=== PATIENT | female | born 1995 | race Caucasian/White ===

== ENCOUNTER 2020-05-12 15:34 | Emergency (ER) | payer OTHER ==
[~2020-05-12 15:34] MED LIST: ZOFRAN4 MG PO
[2020-05-12] MEDS ORDERED: IBUPROFEN600 MG PO (16:38)
== END 2020-05-12 17:00 | disposition home or self-care (01) ==
LOC: ER1 15:34
DX: S20.212A Contusion of left front wall of thorax, initial encounter (principal); S40.012A Contusion of left shoulder, initial encounter; I10 Essential (primary) hypertension; V49.40XA Driver injured in collision with unspecified motor vehicles in traffic accident, initial encounter; Y92.410 Unspecified street and highway as the place of occurrence of the external cause
CPT/HCPCS: 71046; 73030; 99283